=== PATIENT | female | born 1970 | race Caucasian/White ===

== ENCOUNTER → 2018-08-08 | Outpatient (CLI) | payer OTHER ==
[~2018-08-08] MED LIST: FINA5TAB67 PO; SPIR25TA80 PO; SPIR50TA33 PO
[2018-08-08 12:31] LABS: LDL CHOLESTEROL 52 mg/dl
== END ==
LOC: LAB 11:37
PROVIDERS: ATTEND Obstetrics & Gynecology
DX: Z00.00 Encounter for general adult medical examination without abnormal findings (principal)
CPT/HCPCS: 36415; 82040; 82247; 82310; 82374; 82435; 82465; 82565; 82947; 83718; 84075; 84132; 84155; 84295; 84443; 84450; 84460; 84478; 84520; 85027

== ENCOUNTER → 2018-08-18 | Outpatient (CLI) | payer OTHER | LOC: LAB 10:45 | PROVIDERS: ATTEND Obstetrics & Gynecology | DX: Z79.899 Other long term (current) drug therapy (principal) | CPT/HCPCS: 36415; 84132 ==

== ENCOUNTER → 2018-10-17 | Outpatient (CLI) | payer OTHER ==
[~2018-10-17] MED LIST changes: +TRAZ50TA34 PO
== END ==
LOC: LAB 09:02
PROVIDERS: ATTEND Obstetrics & Gynecology
DX: R53.83 Other fatigue (principal)
CPT/HCPCS: 36415; 82040; 82247; 82310; 82374; 82435; 82565; 82947; 83540; 83550; 84075; 84132; 84155; 84295; 84450; 84460; 84520; 85027

== ENCOUNTER → 2019-01-24 | Outpatient (CLI) | payer OTHER ==
[~2019-01-24] MED LIST changes: +AMOX-559 PO; +FLUC150T40 PO
== END ==
LOC: LAB 11:24
PROVIDERS: ATTEND Obstetrics & Gynecology
DX: Z51.81 Encounter for therapeutic drug level monitoring (principal)
CPT/HCPCS: 36415; 82040; 82247; 82310; 82374; 82435; 82565; 82947; 84075; 84132; 84155; 84295; 84450; 84460; 84520

== ENCOUNTER → 2019-01-25 | Outpatient (CLI) | payer OTHER | LOC: LAB 10:50 | PROVIDERS: ATTEND Obstetrics & Gynecology | DX: N89.8 Other specified noninflammatory disorders of vagina (principal) | CPT/HCPCS: 87210 ==

== ENCOUNTER → 2019-02-12 | Outpatient (CLI) | payer OTHER ==
[~2019-02-12] MED LIST changes: +LINA145C PO; +OMEP40CA48 PO
--- NOTE | 2019-02-12 17:36 | RADIOLOGY IMAGING REPORT ---
FACILITY: [facility] - [place] PATIENT NAME: Ping Louie : 1970 MR: [id number] V: [id number] EXAM DATE: ORDERING PHYSICIAN: MEL REED TECHNOLOGIST: Location: [facility] - [place] Patient: Ping Louie : 1970 Visit/Account:[id number] Date of Sevice: 02/12/2019 Exam type: ACUTE ABDOMEN SERIES 3 VIEW History: Chronic constipation greater than 20 years Comparison: None. Findings: Single view the chest demonstrates no evidence of focal infiltrates, pleural effusions or pulmonary e dominguez. The cardiac silhouette is normal in size. The trachea is midline. Supine and upright views of the abdomen demonstrate a nonspecific bowel gas pattern. Soft tissue ful lness in the pelvis may represent a distended bladder although the differential diagnosis would inclu de a pelvic mass. No pathologic intra-abdominal calcifications are seen. IMPRESSION: 1. No evidence of pulmonary consolidation Nonspecific bowel gas Soft tissue fullness in the pelvis may represent a distended urinary bladder although the differentia l diagnosis would include a pelvic mass Report Dictated By: Negar Penn MD at 02/12/2019 5:29 PM Report E-Signed By: Negar Penn MD at 02/12/2019 5:31 PM WSN:[email or web address]
== END ==
LOC: RAD 16:42
PROVIDERS: ATTEND Family Medicine
DX: R10.30 Lower abdominal pain, unspecified (principal)
CPT/HCPCS: 74022

== ENCOUNTER → 2019-02-12 | Outpatient (REF) | payer OTHER | LOC: ZZSENDIN 17:04 | PROVIDERS: ATTEND Family Medicine | DX: R30.0 Dysuria (principal) | CPT/HCPCS: 81001 ==

== ENCOUNTER → 2019-03-06 | Outpatient (CLI) | payer OTHER ==
[~2019-03-06] MED LIST changes: +ESOM40CA42 PO; +OMEP-137 PO; -TRAZ50TA34 PO; +TRAZ50TA52 PO
--- NOTE | 2019-03-19 13:50 | RADIOLOGY IMAGING REPORT ---
[facility] PATIENT NAME: HELEN PICKARD : [id number] MR: [id number] V: [id number] EXAM DATE: [id number] ORDERING PHYSICIAN: DARIN JEAN TECHNOLOGIST: Jyothi Padilla PROCEDURE: BILATERAL DIGITAL SCREENING MAMMOGRAM WITH CAD ASSISTED INTERPRETATION & 3D TOMOSYNTHESIS REASON FOR STUDY: Screening. VIEWS OBTAINED: 2D & 3D full field CC & MLO. BREAST DENSITY: There are scattered areas of fibroglandular density. MAMMOGRAM FINDINGS: There are no suspicious mass, calcification, or architectural distortion. Benign calcification Right breast is seen. IMPRESSION: BIRADS 2: Benign finding. DIAGNOSTIC CATEGORY 2--BENIGN FINDING. RECOMMENDATIONS: ROUTINE MAMMOGRAM AND CLINICAL EVALUATION. Dictated by: Chris Leahy M.D. on 03/19/2019 at 13:28 Transcribed by: DAYANARA on 03/19/2019 at 13:45 Approved by: Chris Leahy M.D. on 03/19/2019 at 13:47 [facility]
== END ==
LOC: MAMO 00:08
PROVIDERS: ATTEND Obstetrics & Gynecology
DX: Z12.31 Encounter for screening mammogram for malignant neoplasm of breast (principal)
CPT/HCPCS: 77063; 77067

== ENCOUNTER → 2019-03-20 | Outpatient (CLI) | payer OTHER ==
--- NOTE | 2019-03-20 15:53 | RADIOLOGY IMAGING REPORT ---
FACILITY: [facility] - [place], [place] PATIENT NAME: Ping Louie : 1970 MR: [id number] V: [id number] EXAM DATE: ORDERING PHYSICIAN: SERA LINCOLN TECHNOLOGIST: [place] [facility] [place] Ping Louie : 1970 Visit/Account:[id number] Date of Sevice: 03/20/2019 HUMERUS RIGHT History: Subtle pain right arm. Comparison study: None. Findings: There is no fracture involving the right humerus. The right shoulder joint is unremarkable. IMPRESSION: Normal images of the right shoulder and right humerus. Report Dictated By: Taras Montana MD at 03/20/2019 3:48 PM Report E-Signed By: Taras Montana MD at 03/20/2019 3:48 PM WSN:[email or web address]
--- NOTE | 2019-03-20 15:54 | RADIOLOGY IMAGING REPORT ---
FACILITY: [facility] - [place] PATIENT NAME: Ping Louie : 1970 MR: [id number] V: [id number] EXAM DATE: ORDERING PHYSICIAN: SERA LINCOLN TECHNOLOGIST: Location: [facility] - [place] Patient: Ping Louie : 1970 Visit/Account:[id number] Date of Sevice: 03/20/2019 SHOULDER MIN 2 VIEWS RIGHT HISTORY: Shoulder pain Three-view examination right shoulder. FINDINGS: No fractures noted. Glenohumeral and AC joints are well-maintained. Soft tissues unremarkable. Vis ualized right chest is clear. IMPRESSION: 1. Normal right shoulder Report Dictated By: Corbin Potts MD at 03/20/2019 3:48 PM Report E-Signed By: Corbin Potts MD at 03/20/2019 3:49 PM WSN:[email or web address]
== END ==
LOC: RAD 13:55
PROVIDERS: ATTEND Nurse Practitioner Primary Care
DX: M79.621 Pain in right upper arm (principal)

== ENCOUNTER 2019-03-22 00:48 | Day surgery (SDC) | payer OTHER ==
[~2019-03-22] VITALS: Ht 162.6 cm; Wt 60.3 kg
[2019-03-22] MEDS ORDERED: LIDOCAINE/SOD BICARB 8.4% SYR ID ONE (08:00)
[2019-03-22] MEDS ORDERED: PROPOFOL EMUL(*) 10MG/ML 20 ML 20 ML ONE ×2 (08:29→13:23)
[2019-03-22] MEDS: NORMOSOL R SOLN(*) 1000 ML BAG 1,000 ML IV PRN ×2 (11:04→14:35)
[2019-03-22 11:35] VITALS: BP 125/89
[2019-03-22 13:49] VITALS: BP 116/71
[2019-03-22 14:25] VITALS: BP 111/90
[2019-03-22 14:30] VITALS: BP 114/79
--- NOTE | 2019-03-22 14:35 | NUR ---
pt states she has a headache and feels dizzy, gave pt cafffeinated drink and started IVF bolus of NR. will monitor for effect
[2019-03-22 14:56] VITALS: BP 114/61
[2019-03-22 14:57] VITALS: BP 123/75
--- NOTE | 2019-03-22 15:05 | NUR ---
pt ate some applesauce and crackers and a coke, gave 300ml IV fluid bolus, pt states she feels less dizzy and headache is getting better. pt ready to get up, completed orthostatic vital signs. pt ambulating without difficulty. pt educated to use tylenol instead of ibuprofen due to polyp removal.
== END 2019-03-22 15:15 | disposition home or self-care (01) ==
LOC: OR 00:48
PROVIDERS: ATTEND Internal Medicine Gastroenterology
DX: K63.5 Polyp of colon (principal); K29.70 Gastritis, unspecified, without bleeding; K44.9 Diaphragmatic hernia without obstruction or gangrene; B96.81 Helicobacter pylori [H. pylori] as the cause of diseases classified elsewhere
CPT/HCPCS: 00813; 43239; 45380; 45385; 81025; 88305; 88313; 88342; J2704